=== PATIENT | female | born 1960 | race Hispanic/Latino ===

== ENCOUNTER 2016-08-13 11:37 | Outpatient (CLI) | payer SELFPAY ==
--- NOTE | 2016-08-14 10:43 | PET Report ---
PET/CT:08/13/16 11:37:00 CLINICAL: Right hilar lung mass. RADIOPHARMACEUTICAL: 12.92mCi F18-FDG. COMPARISON: None. TECHNIQUE- Following intravenous injection of F-18 FDG and an approximately 60 minute uptake period, CT and PET images from the mid skull to the upper thighs were acquired with the patient in the fasted state. No contrast was administered. The CT protocol used for this PET CT study is designed for attenuation correction and anatomic localization of PET abnormalities. This silo man CT is not desired to produce and cannot replace, svkyo-ax-yed-art diagnostic CT scans with specific imaging protocols for different body parts and indications. Plasma glucose at the time of this test: 91g/dl. The standardized uptake values (SUV) are normalized to patient body weight and indicate the highest activity concentration (SUV max) in a given disease site. FINDINGS: Brain--Physiologic FDG uptake in the visualized regions of the brain. Neck--Physiologic FDG uptake . Chest--Physiologic FDG uptake in mediastinal blood pool and myocardium. Lungs--A spiculated FDG avid right upper lobe lung mass measures 2.0 x 2.0 cm with SUV 14.7. It arises from the anterior right upper lobe bronchus near the hilum. Stranding extends to the pleura. A second more medial and anterior mass measures 1.0 about 1.1 cm with SUV is 0.9. There are several (at least three) low density subcentimeter nodular opacities of the right upper lobe with no FDG uptake. Non-FDG avid left upper lobe opacities measure approximately 1.0 x 0.3 cm and 0.9 x 0.6 cm. Pleura/pericardium--No abnormal uptake. Thoracic nodes--No abnormal uptake. No lymphadenopathy. Hepatobiliary--No abnormal uptake. Liver background SUV mean, as a reference for comparing FDG studies, is 4.5 . No liver mass. Spleen--No abnormal uptake. Pancreas--No abnormal uptake. Adrenal Glands--No abnormal uptake. Kidneys/Ureters/Bladder--No abnormal uptake. Abdominopelvic Nodes--No abnormal uptake. Bowel/Peritoneum/Mesentery--No abnormal uptake. Pelvic organs--No abnormal uptake. Bones/Soft Tissues--No abnormal uptake. IMPRESSION- 1. A 2 cm FDG avid right upper lobe lung mass is highly suspicious for bronchogenic carcinoma. A second non-FDG avid right upper lobe 1 cm mass is also highly suspicious. 2. Several bilateral upper lobe non-FDG avid vague lung opacities however are of uncertain significance but may represent early metastatic disease. Recommend CT followup of the left upper lobe. 3. No evidence of lake, adrenal or hepatic metastasis.
== END 2016-08-13 11:38 | disposition home or self-care (01) ==
LOC: PET 11:37
PROVIDERS: ATTEND Internal Medicine Pulmonary Disease
DX: R91.8 Other nonspecific abnormal finding of lung field (principal); J44.9 Chronic obstructive pulmonary disease, unspecified; F32.9 Major depressive disorder, single episode, unspecified; F17.200 Nicotine dependence, unspecified, uncomplicated; Z79.899 Other long term (current) drug therapy
CPT/HCPCS: 78815; 82962; A9552